=== PATIENT | female | born 1990 | race Caucasian/White ===

== ENCOUNTER 2016-10-25 08:50 | Emergency (ER) | payer OTHER ==
[2016-10-25] MEDS ORDERED: KETOROLAC TROMETHAMINE 60 MG/2 ML SDV IM ONE (09:40)
--- NOTE | 2016-10-25 09:41 | ER Document Report ---
ED Headache - General Chief Complaint: Headache Stated Complaint: HEADACHE Time seen by provider: 09:35 Mode of Arrival: Ambulatory Information source: Patient Notes: This is a 26-year-old female with a history of migraines visiting from [place] who presents to the emergency room with a typical migraine for the past 2-3 days. The patient is very sensitive to medicines and does not tolerate Reglan, narcotics, caffeine. She describes the headache as throbbing with gradual onset and was precipitated by left field of vision "squiggly lines". Patient denies that this is the worst headache of her life. She denies fever, chills, neck pain. She states that she had a canker sore on the left side of her mouth for the past week and has seen her doctor in [facility] for this. She states normally she can abort the headache with the use of peppermint oil spot had left them. TRAVEL OUTSIDE OF THE [place] IN LAST 30 DAYS: No - HPI Patient complains to provider of: Headache Onset: Just prior to arrival Onset was: Gradual Timing: Still present Quality of pain: Dull Severity: Moderate Pain Level: 2 Preceding symptoms: Typical of prior aura(s) Associated symptoms: denies: Confusion, Dizzy, Fainting, Fever, Memory loss, Motor/sensory loss to arm, Nausea/vomiting, Photophobia, Speech problems, Tingling/numb sensation Exacerbated by: Noise Similar symptoms previously: Yes Recently seen / treated by doctor: Yes - Related Data Allergies/Adverse Reactions: No Known Allergies Allergy (Verified 10/25/16 09:01) Past Medical History - General Information source: Patient - Social History Smoking Status: Never Smoker Cigarette use (# per day): No Chew tobacco use (# tins/day): No Frequency of alcohol use: None Drug Abuse: None Lives with: Family Family History: Reviewed & Not Pertinent Patient has suicidal ideation: No Patient has homicidal ideation: No - Past Medical History Cardiac Medical History: Reports: None Pulmonary Medical History: Reports: None Neurological Medical History: Reports: Hx Migraine Endocrine Medical History: Reports: None Renal/ Medical History: Denies: Hx Peritoneal Dialysis GI Medical History: Reports: None Psychiatric Medical History: Reports: Hx Depression - post depression Infectious Medical History: Denies: Hx HIV Past Surgical History: Reports: Hx Section, Hx Oral Surgery Review of Systems - Review of Systems Constitutional: denies: Chills, Fever EENT: No symptoms reported Cardiovascular: No symptoms reported Respiratory: No symptoms reported Gastrointestinal: No symptoms reported Genitourinary: No symptoms reported Female Genitourinary: No symptoms reported Musculoskeletal: No symptoms reported Skin: No symptoms reported Hematologic/Lymphatic: No symptoms reported Neurological/Psychological: See HPI Physical Exam - Vital signs Vitals: Temp Pulse Resp BP Pulse Ox 98.1 F 79 18 131/68 H 98 10/25/16 08:56 10/25/16 08:56 10/25/16 08:56 10/25/16 08:56 10/25/16 08:56 Notes: Physical exam: GENERAL: 26-year-old female, alert and oriented 3, no acute distress. No significant photophobia. Patient does not have any neck rigidity. Patient is on the Smart phone without any discomfort when I enter the room. HEAD: Atraumatic, normocephalic. EYES: Pupils equal round and reactive to light, extraocular movements intact, sclera anicteric, conjunctiva are normal. ENT: TMs normal, nares patent, oropharynx reveals aphthous ulcers on the left side of the throat which the patient states is improving. Moist mucous membranes. NECK: Normal range of motion, supple without lymphadenopathy or JVD. LUNGS: Breath sounds clear to auscultation bilaterally and equal. No wheezes rales or rhonchi. HEART: Regular rate and rhythm without murmurs, rubs or gallops. ABDOMEN: Soft, normoactive bowel sounds. No tenderness to palpation. No guarding, no rebound. No masses appreciated. EXTREMITIES: Normal range of motion, no pitting or edema. No clubbing or cyanosis. NEUROLOGICAL: Cranial nerves II through XII grossly intact. Visual diaz are good, discs are sharp. Motor 5 over 5, sensory grossly intact Normal speech, the patient's neck is supple and there is no meningismus, cerebellar exam ( finger to nose) is good, reflexes are symmetrical, patient has a normal gait. PSYCH: Normal mood, normal affect. SKIN: Warm, Dry, normal turgor, no rashes or lesions noted. Course - Re-evaluation Re-evalutation: 10/25/16 09:40 I have discussed the available options with the patient. She has had an adverse reaction to Reglan in the past and given that it was quite substantial ( panic attack), so I want to avoid Compazine. The patient is adamant against narcotics. Additionally, she states she is unable to tolerate caffeine. She has had Toradol in the past. I will give her a shot for Toradol. An I've discussed other [id number] medicines for the migraine. - Vital Signs Vital signs: Temp Pulse Resp BP Pulse Ox 97.8 F 66 15 131/74 H 100 10/25/16 09:57 10/25/16 09:57 10/25/16 09:57 10/25/16 09:57 10/25/16 09:57 Discharge - Discharge Clinical Impression: migraine Condition: Stable Disposition: HOME, SELF-CARE Instructions: Toradol Injection ([facility]) Additional Instructions: Recommendations for headaches: Continue with ibuprofen every 6 hours. Tylenol or acetaminophen is safe. You can add Benadryl. Rest, ice packs to temples. To prevent headaches: Try magnesium (400 mg daily with food). Follow-up with your neurologist when back in [place]. Return to the emergency room for worsening headache, fever (temperature greater than 100.4), neck stiffness or concerns he getting worse.
[2016-10-25 10:11] VITALS: BP 131/74
== END 2016-10-25 10:00 | disposition home or self-care (01) ==
LOC: ER 08:50
DX: G43.909 Migraine, unspecified, not intractable, without status migrainosus (principal)
CPT/HCPCS: 99283; 96372; J1885

== ENCOUNTER 2016-12-03 17:57 | Emergency (ER) | payer OTHER ==
[2016-12-03] MEDS ORDERED: ACETAMINOPHEN 325 MG TABLET PO ONE (18:31)
[2016-12-03] MEDS ORDERED: NORMAL SALINE 1000 ML 1,000 ML IV PRN (18:31)
[2016-12-03] MEDS ORDERED: ONDANSETRON 4 MG TAB.RAPDIS SL ONE (18:31)
--- NOTE | 2016-12-03 18:33 | ER Document Report ---
ED Medical Screen (RME) - General Chief Complaint: Fever Stated Complaint: FEVER/BODY ACHES Time seen by provider: 18:32 Mode of Arrival: Ambulatory Information source: Patient TRAVEL OUTSIDE OF THE [place] IN LAST 30 DAYS: No - HPI Patient complains to provider of: fever, body aches, cough, sore throat, nausea , vomiting Onset: Other - Friday Onset/Duration: Gradual, Persistent Quality of pain: Achy Severity: Moderate Pain Level: 3 Associated Symptoms: Body/muscle aches, Cough (productive), Fever, Headache, Nausea, Sinus pain/drainage, Sore throat, Vomiting Exacerbated by: Denies Relieved by: Denies Similar symptoms previously: No Recently seen / treated by doctor: Yes Notes: 12/03/16 18:33 - Related Data Allergies/Adverse Reactions: No Known Allergies Allergy (Verified 12/03/16 18:16) Past Medical History Neurological Medical History: Reports: Hx Migraine Renal/ Medical History: Denies: Hx Peritoneal Dialysis Psychiatric Medical History: Reports: Hx Depression - post depression Infectious Medical History: Denies: Hx HIV Past Surgical History: Reports: Hx Section, Hx Oral Surgery Physical Exam - Vital signs Vitals: Temp Pulse Resp BP Pulse Ox 102.4 F H 136 H 16 131/64 H 96 12/03/16 18:17 12/03/16 18:17 12/03/16 18:17 12/03/16 18:17 12/03/16 18:17 Course - Vital Signs Vital signs: Temp Pulse Resp BP Pulse Ox 102.4 F H 136 H 16 131/64 H 96 12/03/16 18:17 12/03/16 18:17 12/03/16 18:17 12/03/16 18:17 12/03/16 18:17
[2016-12-03 18:57] LABS: ABSOLUTE BASOPHILS # (AUTO) 0.1 10^3/uL (0.0-0.2); ABSOLUTE LYMPHOCYTES (AUTO) 1.4 10^3/uL (0.5-4.7); ABSOLUTE MONOCYTES (AUTO) 1.4 10^3/uL (0.1-1.4); ABSOLUTE NEUT (AUTO) 7.3 10^3/uL (1.7-8.2); BASOPHILS % (AUTO) 0.6 % (0-2); EOSINOPHILS % (AUTO) 0.2 % (0-6); HEMATOCRIT 39.2 % (36.0-47.0); HEMOGLOBIN 13.2 g/dL (12.0-15.5); HGB HCT DIFFERENCE 0.4; LYMPHOCYTES % (AUTO) 13.3 % (13-45); MEAN CORPUSCULAR HEMOGLOBIN 28.2 pg (27.0-33.4); MEAN CORPUSCULAR HGB CONC 33.6 g/dL (32.0-36.0); MEAN CORPUSCULAR VOLUME 84 fl (80-97); MONOCYTES % (AUTO) 13.6 % (3-13); RED BLOOD COUNT 4.68 10^6/uL (3.72-5.28); RED CELL DISTRIBUTION WIDTH 13.7 % (11.5-14.0); SEGMENTED NEUTROPHILS % (AUTO) 72.3 % (42-78); WHITE BLOOD COUNT 10.1 10^3/uL (4.0-10.5)
[2016-12-03 19:03] LABS: APPEARANCE,URINE CLEAR; BILIRUBIN,URINE NEGATIVE (NEGATIVE); GLUCOSE, URINE NEGATIVE (NEGATIVE); KETONES,URINE NEGATIVE (NEGATIVE); LEUKOCYTE ESTERASE,URINE NEGATIVE (NEGATIVE); NITRITE,URINE NEGATIVE (NEGATIVE); PROTEIN,URINE NEGATIVE (NEGATIVE); URINE SPECIFIC GRAVITY 1.008; UROBILINOGEN,URINE NEGATIVE mg/dL (<2.0)
[2016-12-03 19:09] LABS: ALANINE AMINOTRANSFERASE 43 U/L (9-52); ALBUMIN 4.6 g/dL (3.5-5.0); ALKALINE PHOSPHATASE 74 U/L (38-126); ANION GAP 14 (5-19); ASPARTATE AMINO TRANSFERASE 22 U/L (14-36); BILIRUBIN,DIRECT 0.3 mg/dL (0.0-0.4); BILIRUBIN,TOTAL 0.5 mg/dL (0.2-1.3); BLOOD UREA NITROGEN 14 mg/dL (7-20); CALCIUM 9.6 mg/dL (8.4-10.2); CARBON DIOXIDE 25 mmol/L (22-30); CHLORIDE 103 mmol/L (98-107); GLUCOSE 102 mg/dL (75-110); LIPASE 94.1 U/L (23-300); POTASSIUM 4.3 mmol/L (3.6-5.0); SODIUM 141.9 mmol/L (137-145); TOTAL PROTEIN 7.7 g/dL (6.3-8.2)
[2016-12-03] MEDS ORDERED: PENICILLIN V POTASSIUM 500 MG TABLET PO ONE (20:06)
[2016-12-03] MEDS ORDERED: IBUPROFEN 600 MG TABLET PO ONE (20:06)
[2016-12-03 20:34] VITALS: BP 113/70
--- NOTE | 2016-12-03 20:49 | ER Document Report ---
ED Fever - General Chief Complaint: Fever Stated Complaint: FEVER/BODY ACHES Time seen by provider: 20:44 Mode of Arrival: Ambulatory Information source: Patient TRAVEL OUTSIDE OF THE [place] IN LAST 30 DAYS: No - HPI Patient complains to provider of: fever Onset: Yesterday Onset/Duration: Gradual, Persistent Quality of pain: Achy Severity: Mild Associated symptoms: Body/muscle aches, Chills, Nonproductive cough, Fever, Headache, Sore throat Similar symptoms previously: No Recently seen / treated by doctor: Yes - appendectomy on 320 Notes: Patient is a 26-year-old female presents to the emergency room complaining of fever, body aches, nausea, sore throat, headache, stuffiness, nonproductive cough, symptoms going on for the past 2 days, she is a history of an appendectomy on 11/12/2016 at [facility] in [place], she recently moved to the area - Related Data Allergies/Adverse Reactions: No Known Allergies Allergy (Verified 12/03/16 18:16) Past Medical History - General Information source: Patient - Social History Smoking Status: Never Smoker Chew tobacco use (# tins/day): No Frequency of alcohol use: None Drug Abuse: None Family History: Reviewed & Not Pertinent Patient has suicidal ideation: No Patient has homicidal ideation: No Neurological Medical History: Reports: Hx Migraine Renal/ Medical History: Denies: Hx Peritoneal Dialysis Psychiatric Medical History: Reports: Hx Depression - post depression Infectious Medical History: Denies: Hx HIV Past Surgical History: Reports: Hx Section, Hx Oral Surgery - Immunizations Hx Diphtheria, Pertussis, Tetanus Vaccination: Yes Review of Systems - Review of Systems Constitutional: Fever EENT: See HPI Cardiovascular: No symptoms reported Respiratory: Cough Gastrointestinal: Nausea. denies: Abdominal pain Genitourinary: No symptoms reported. denies: Dysuria Female Genitourinary: No symptoms reported Musculoskeletal: See HPI Skin: No symptoms reported Hematologic/Lymphatic: No symptoms reported Neurological/Psychological: Headaches -: Yes All other systems reviewed and negative Physical Exam - Vital signs Vitals: Temp Pulse Resp BP Pulse Ox 102.4 F H 136 H 16 131/64 H 96 12/03/16 18:17 12/03/16 18:17 12/03/16 18:17 12/03/16 18:17 12/03/16 18:17 Interpretation: Tachycardic, Febrile - General General appearance: Alert In distress: None - HEENT Head: Normocephalic, Atraumatic Eyes: Normal Conjunctiva: Normal Extraocular movements intact: Yes Eyelashes: Normal Pupils: PERRL Ears: Normal External canal: Normal Pharynx: Erythema, Exudate, Tonsillar hypertrophy Neck: Normal - Respiratory Respiratory status: No respiratory distress Chest status: Nontender Breath sounds: Normal Chest palpation: Normal - Cardiovascular Rhythm: Regular Heart sounds: Normal auscultation Murmur: No - Abdominal Inspection: Normal Distension: No distension Bowel sounds: Normal Tenderness: Nontender Organomegaly: No organomegaly - Back Back: Normal, Nontender - Extremities General upper extremity: Normal inspection, Nontender, Normal color, Normal ROM , Normal temperature General lower extremity: Normal inspection, Nontender, Normal color, Normal ROM , Normal temperature, Normal weight bearing. No: Julia's sign - Neurological Neuro grossly intact: Yes Cognition: Normal Orientation: AAOx4 [place] Coma Scale Eye Opening: Spontaneous Judy Coma Scale Verbal: Oriented Judy Coma Scale Motor: Obeys Commands Judy Coma Scale Total: 15 Speech: Normal Motor strength normal: LUE, RUE, LLE, RLE Sensory: Normal - Psychological Associated symptoms: Normal affect, Normal mood - Skin Skin Temperature: Warm Skin Moisture: Dry Skin Color: Normal Course - Re-evaluation Re-evalutation: 12/03/16 20:50 Patient with positive strep test, symptoms consistent with strep pharyngitis, reports feeling much better after antipyretics, and antibiotics, she would you be given a prescription for antibiotics, advised to follow-up with her primary care provider or return if symptoms worsen, patient acknowledges understanding and agreement with this - Vital Signs Vital signs: Temp Pulse Resp BP Pulse Ox 99.2 F 97 16 113/70 97 12/03/16 20:30 12/03/16 20:30 12/03/16 20:30 12/03/16 20:30 12/03/16 20:30 - Laboratory Result Diagrams: 12/03/16 18:45 12/03/16 18:45 Laboratory results interpreted by me: 12/03/16 12/03/16 18:45 18:45 Monocytes % 13.6 H Urine Blood SMALL H - Diagnostic Test Radiology reviewed: Image reviewed, Reports reviewed Discharge - Discharge Clinical Impression: Strep pharyngitis Condition: Stable Disposition: HOME, SELF-CARE Instructions: Acetaminophen, Fever ([facility]), Ibuprofen (General) ([facility]), Strep Throat ([facility]) Additional Instructions: Drink plenty of fluids. Get plenty or rest. Tylenol or Motrin as needed for fever. Follow-up with your primary care provider in 2-3 days. Return to the emergency room immediately if symptoms worsen or any additional concerns. Prescriptions: Penicillin V Potassium [Penicillin Vk 500 mg Tablet] 500 mg PO BID #20 tablet
== END 2016-12-03 20:54 | disposition home or self-care (01) ==
LOC: ER 17:57
DX: J02.0 Streptococcal pharyngitis (principal); M79.1 Myalgia; R50.9 Fever, unspecified; R00.0 Tachycardia, unspecified; R51 Headache; R05 Cough; R11.0 Nausea; Z90.49 Acquired absence of other specified parts of digestive tract
CPT/HCPCS: 36415; 71020; 80053; 81001; 81025; 83690; 85025; 87086; 87804; 87880; 99283

== ENCOUNTER 2016-12-15 02:46 | Emergency (ER) | payer OTHER ==
[2016-12-15] MEDS ORDERED: ACETAMINOPHEN 325 MG TABLET PO ONE (05:37)
[2016-12-15] MEDS ORDERED: DEXAMETHASONE 4 MG TABLET PO ONE (06:33)
[2016-12-15 07:43] LABS: ANION GAP 14 (5-19); BLOOD UREA NITROGEN 8 mg/dL (7-20); CALCIUM 9.7 mg/dL (8.4-10.2); CARBON DIOXIDE 25 mmol/L (22-30); CHLORIDE 103 mmol/L (98-107); CREATININE RESULT 0.66 mg/dL (0.52-1.25); GLUCOSE 104 mg/dL (75-110); POTASSIUM 4.2 mmol/L (3.6-5.0); SODIUM 141.8 mmol/L (137-145)
--- NOTE | 2016-12-15 08:36 | ER Document Report ---
ED General - General Chief Complaint: Sore Throat Stated Complaint: SORE THROAT TRAVEL OUTSIDE OF THE [place] IN LAST 30 DAYS: No - HPI Patient complains to provider of: sore throat Notes: Patient coming in for evaluation of sore throat. Patient was recently seen diagnosed with strep was given penicillin for anabolic coverage. Patient states she continues to have sore throat after finishing antibiotics therefore went to an urgent care was recently given clarithromycin for anabolic coverage. Patient now returns to the ER because of continued symptoms. Patient states continues fevers although afebrile here states painful swallowing. Patient states no relief with any medications at home denies any nausea vomiting chills patient is talking with a normal voice no drooling or tripoding no trismus - Related Data Allergies/Adverse Reactions: No Known Allergies Allergy (Verified 12/15/16 02:48) Past Medical History - Social History Smoking Status: Unknown if Ever Smoked Family History: Reviewed & Not Pertinent Patient has suicidal ideation: No Patient has homicidal ideation: No Neurological Medical History: Reports: Hx Migraine Renal/ Medical History: Denies: Hx Peritoneal Dialysis Psychiatric Medical History: Reports: Hx Depression - post depression Infectious Medical History: Denies: Hx HIV Past Surgical History: Reports: Hx Section, Hx Oral Surgery - Immunizations Hx Diphtheria, Pertussis, Tetanus Vaccination: Yes Review of Systems - Review of Systems Constitutional: No symptoms reported EENT: Throat pain Cardiovascular: No symptoms reported Respiratory: No symptoms reported Gastrointestinal: No symptoms reported Genitourinary: No symptoms reported Female Genitourinary: No symptoms reported Musculoskeletal: No symptoms reported Skin: No symptoms reported Hematologic/Lymphatic: No symptoms reported Neurological/Psychological: No symptoms reported -: Yes All other systems reviewed and negative Physical Exam - Vital signs Vitals: Temp Pulse Resp BP Pulse Ox 99.3 F 101 H 20 132/69 H 99 12/15/16 02:48 12/15/16 02:48 12/15/16 02:48 12/15/16 02:48 12/15/16 02:48 Interpretation: Normal - General General appearance: Appears well, Alert - HEENT Head: Normocephalic, Atraumatic Eyes: Normal Pupils: PERRL Ears: Normal External canal: Normal Tympanic membrane: Normal Sinus: Normal Nasal: Normal Mouth/Lips: Normal Pharynx: Other - Enlarged right tonsillar pillar with no signs of abscess formation minimal erythema no exudates Neck: Normal - Respiratory Respiratory status: No respiratory distress Chest status: Nontender Breath sounds: Normal Chest palpation: Normal - Cardiovascular Rhythm: Regular Heart sounds: Normal auscultation Murmur: No - Abdominal Inspection: Normal Distension: No distension Bowel sounds: Normal Tenderness: Nontender Organomegaly: No organomegaly - Back Back: Normal, Nontender - Extremities General upper extremity: Normal inspection, Nontender, Normal color, Normal ROM , Normal temperature General lower extremity: Normal inspection, Nontender, Normal color, Normal ROM , Normal temperature, Normal weight bearing. No: Julia's sign - Neurological Neuro grossly intact: Yes Cognition: Normal Orientation: AAOx4 Judy Coma Scale Eye Opening: Spontaneous [place] Coma Scale Verbal: Oriented Judy Coma Scale Motor: Obeys Commands Judy Coma Scale Total: 15 Speech: Normal Motor strength normal: LUE, RUE, LLE, RLE Sensory: Normal - Psychological Associated symptoms: Normal affect, Normal mood - Skin Skin Temperature: Warm Skin Moisture: Dry Skin Color: Normal Course - Re-evaluation Re-evalutation: 12/15/16 14:33 Patient's rapid strep mono testing returned negative. Unclear etiology for the patient's increased size and tonsil give the patient a dose Decadron and will continue prednisone as outpatient. Patient was encouraged follow-up with her doctor and possible local ENT. Return to the ER symptoms worsen - Vital Signs Vital signs: Temp Pulse Resp BP Pulse Ox 98.5 F 103 H 16 117/73 97 12/15/16 08:43 12/15/16 08:43 12/15/16 08:43 12/15/16 08:43 12/15/16 08:43 - Laboratory Result Diagrams: 12/15/16 06:58 Discharge - Discharge Clinical Impression: Sore throat Condition: Good Disposition: HOME, SELF-CARE Instructions: Sore Throat ([facility]), ENT Additional Instructions: At this time your examination does show an enlarged right tonsil however is no signs of abscess formation. Your laboratory testing shows a negative strep test and a negative mono test. No signs of any severe infection. We did give you a dose of steroids today that should help decrease the swelling. I'll prescribe you steroids for the next 4 days. You do not need to take anymore steroids today. I would continue the antibiotics that you are prescribed. We did send a throat culture these results will be available in approximately the next 2-3 days. If we do need to change your antibiotic we will call you. If this continues I would recommend following up with a your nose and throat doctor for more extensive testing and evaluation Prescriptions: Magic Mouthwash 5 ml PO Q6 PRN #120 ml PRN Reason: Prednisone [Deltasone 20 mg Tablet] 2 tab PO DAILY 4 Days Forms: Return to Work
[2016-12-15 09:03] VITALS: BP 117/73
== END 2016-12-15 08:40 | disposition home or self-care (01) ==
LOC: ER 02:46
DX: J02.9 Acute pharyngitis, unspecified (principal)
CPT/HCPCS: 36415; 80048; 86308; 87070; 87880; 99283

== ENCOUNTER → 2017-07-15 | Outpatient (CLI) | payer OTHER ==
[2017-07-15 18:54] LABS: CHLAM PCR NOT DETECTED (NOT DETECT)
== END ==
LOC: OD 15:19
PROVIDERS: ATTEND Nurse Practitioner Acute Care
DX: R30.0 Dysuria (principal)
CPT/HCPCS: 87086; 87088; 87491; 87591